=== PATIENT | female | born 1980 ===

== ENCOUNTER 2016-09-14 14:08 | Emergency (ER) | payer OTHER ==
[2016-09-14 14:24] VITALS: O2SAT 98
[2016-09-14 15:43] VITALS: RESP 18
--- NOTE | 2016-09-14 15:54 | RAD ---
HISTORY: cough x 5 weeks COMPARISON: None available. TECHNIQUE: Chest PA and lateral FINDINGS: Examination limited by habitus. LUNGS: No focal consolidation. Please note that chest x-ray has limited sensitivity for the detection of pulmonary masses. PLEURA: No significant pleural effusion identified. No definite pneumothorax . CARDIOVASCULAR: The cardiomediastinal silhouette appears within normal limits of size. OSSEOUS STRUCTURES: No acute osseous abnormality identified. VISUALIZED UPPER ABDOMEN: Unremarkable. OTHER FINDINGS: None. IMPRESSION: No focal consolidation, significant pleural effusion, or definite pneumothorax identified.
[2016-09-14 16:21] VITALS: BP 121/78; PULSE 84; TEMP 98.3
--- NOTE | 2016-09-14 16:32 | C.PDOC ---
History Of Present Illness A 36 y/o Female c/o persistent cough with production of yellowish white mucous for 5 weeks. Reports today she checked her blood pressure at a pharmacy and her BP was found high and then got a headache which prompted her visit. Denies visual changes, numbness, weakness, fever, chills, vomiting diarrhea, or recent travel. Time Seen by Provider: 09/14/16 14:34 Chief Complaint (Nursing): Medical Clearance History Per: Patient History/Exam Limitations: no limitations Onset/Duration Of Symptoms: Days (5 weeks), Persistent Current Symptoms Are (Timing): Still Present Recent travel outside of the [place]: No Additional History Per: Patient Past Medical History Reviewed: Historical Data, Nursing Documentation, Vital Signs Vital Signs: Last Vital Signs Temp 98.3 F 09/14/16 16:20 Pulse 84 09/14/16 16:20 Resp 18 09/14/16 16:20 BP 121/78 09/14/16 16:20 Pulse Ox 98 09/14/16 16:35 Family History: States: No Known Family Hx - Social History Hx Alcohol Use: No Hx Substance Use: No - Immunization History Hx Influenza Vaccination: No Review Of Systems Except As Marked, All Systems Reviewed And Found Negative. Constitutional: Negative for: Fever, Chills Eyes: Negative for: Vision Change Respiratory: Positive for: Cough Gastrointestinal: Negative for: Vomiting, Diarrhea Neurological: Positive for: Headache. Negative for: Weakness, Numbness Physical Exam - Physical Exam Appears: Non-toxic, No Acute Distress Skin: Warm, Dry, No Rash Head: Atraumatic, Normacephalic Eye(s): bilateral: Normal Inspection, PERRL, EOMI Ear(s): Bilateral: Normal Oral Mucosa: Moist Throat: Normal, No Exudate Neck: Normal ROM, Supple Chest: Symmetrical, No Tenderness Cardiovascular: Rhythm Regular, No Friction Rub, No Murmur Respiratory: Normal Breath Sounds, No Rales, No Rhonchi, No Wheezing Gastrointestinal/Abdominal: Soft, No Tenderness Back: Normal Inspection, No CVA Tenderness Extremity: Normal ROM, No Tenderness, No Swelling Neurological/Psych: Oriented x3, Normal Speech, Normal Cognition, Normal Motor, Normal Sensation Gait: Steady ED Course And Treatment O2 Sat by Pulse Oximetry: 98 (RA) Pulse Ox Interpretation: Normal Medical Decision Making Medical Decision Making: Impression: A 36 y/o F c/o persistent cough with production of yellowish white mucous for 5 weeks. Found BP to be high today. Plans: * Zithromax * PredniSOLONE * CXR * Reassess CXR was found to be normal. Physical is indicative of bronchitis. BP was rechecked and improved. The patient was instructed to have the BP by the PMD or medical clinic. Disposition - Disposition Referrals: Inocencia Reynolds [Staff Provider] - Disposition: HOME/ ROUTINE Disposition Time: 16:00 Condition: GOOD Additional Instructions: Follow up with the medical doctor within 1-2 days. Return if worsened. Prescriptions: Azithromycin [Zithromax] 250 mg PO DAILY #4 tab Loratadine [Claritin] 10 mg PO DAILY #10 tab predniSONE [Prednisone] 20 mg PO BID #10 tab Instructions: Acute Bronchitis (ED), Hypertension (DC) Forms: [facility] [employer] [employer] [facility] (Danish) - Clinical Impression Clinical Impression: Bronchitis, Elevated blood pressure reading - Scribe Statement The provider has reviewed the documentation as recorded by the Scribe Noemi rivas All medical record entries made by the Scribe were at my direction and personally dictated by me. I have reviewed the chart and agree that the record accurately reflects my personal performance of the history, physical exam, medical decision making, and the department course for this patient. I have also personally directed, reviewed, and agree with the discharge instructions and disposition.
== END 2016-09-14 16:54 | disposition home or self-care (01) ==
LOC: C.ER 14:08
DX: J20.9 Acute bronchitis, unspecified (principal); I10 Essential (primary) hypertension